=== PATIENT | female | born 1990 | race Caucasian/White ===

== ENCOUNTER 2017-10-05 15:29 | Observation (INO) ==
[2017-10-05] MEDS ORDERED: *HR* FentaNYL (PF) 100 MCG/2 ML VIAL IVP ONE ×3 (15:49→17:27)
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
[2017-10-05] MEDS ORDERED: *HR* OxyCODONE/APAP 5/325 TABLET PO ONE (17:27)
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
[2017-10-05] MEDS ORDERED: *HR* HYDROmorphone 2 MG TABLET PO ONE (18:03)
--- NOTE | 2017-10-05 19:04 | Anesthesia Evaluation PreOp ---
Date of Encounter: 10/05/17 Time of Encounter: 19:02 - Past History Planned Operation: IM Nailing Left Tibia Cardiac History: Denies any Significant Hx Pulmonary History: Smoker CANDY FEEDER History: Denies Any Significant HX (depression) Other Medical History: Other Anesthesia History: No Prior Anesthetic Complications, Past Anesthesia Test: Negative Alcohol Use: occasionally Drug use: none Medications and Allergies Norgestimate-Ethinyl Estradiol [Sprintec 28 Day Tablet] 1 each PO QAM 10/05/17 [ History] Sertraline [Zoloft] 100 mg PO QAM 10/05/17 [History] 3 Allergy/AdvReac Type Severity Reaction Status Date / Time No Known Allergies Allergy Verified 10/05/17 15:41 - Meds/Allergy Pre-op Review Medications Reviewed: Yes Allergies Reviewed: Yes Beta Blockers on Current Med List: No Anesthesia Results - Labs Laboratory Tests 10/05/17 18:41 Serum , Qual Negative Anesthesia Exam Vital Signs/O2 Sat, Most Current Temp Pulse Resp BP Pulse Ox 98.7 F 108 16 134/86 99 10/05/17 15:33 10/05/17 18:13 10/05/17 18:13 10/05/17 18:13 10/05/17 18:13 Height: 5'3''/1.6 m Weight: 150 lbs/68 kg NPO (# of Hours): 7 Pain Scale: 6 (LLE) Pain Scale Used: Numeric (1 - 10) - HEENT Pupil (Motor): EOMI Mallampati: II Teeth: Normal Oral Opening: Greater than 3 - CANDY FEEDER LOC: Oriented CANDY FEEDER Motor: Normal RUE, Normal LUE, Normal RLE, Normal LLE, Normal Face CANDY FEEDER Sensory: Normal: RUE, LUE, RLE, Face, Deficit: LLE (left foot numbness) - Cardiac Rhythm: Regular Murmur: None - Pulmonary Breath Sounds: bilateral Clear Respiratory Effort: Symmetrical Anesthesia Assess/Plan ASA Score: 2 Modified [place] Scale for Level of Consciousness: Cooperative, oriented, and tranquil Anesthetic Plan: General Monitoring Plan: Standard Monitors Recovery Plan: PACU
[2017-10-05] MEDS ORDERED: *HR* OxyCODONE Immed Rel 5 MG TABLET PO PRN (19:56)
[2017-10-05] MEDS ORDERED: Naloxone 0.4 MG/ML INJ IVP PRN (19:56)
[2017-10-05] MEDS ORDERED: *HR* HYDROcodone/Acet 5/325 mg TABLET PO PRN (19:56)
[2017-10-05] MEDS ORDERED: Acetaminophen 325 MG TABLET PO PRN (19:56)
[2017-10-05] MEDS: Ringers Solution, Lactated 1,000 ML IVC SCH ×2 (20:00→23:00)
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
[2017-10-05] MEDS ORDERED: *HR* Propofol 200 MG/20 ML VIAL IVP ONE (20:29)
[2017-10-05] MEDS ORDERED: *HR* Midazolam HCl 2 MG/2 ML VIAL ONE (20:29)
[2017-10-05] MEDS ORDERED: *HR* FentaNYL (PF) 100 MCG/2 ML VIAL ONE ×2 (20:29→22:21)
[2017-10-05] MEDS ORDERED: Lidocaine -MPF 4% 5 ML AMPUL ONE (20:30)
[2017-10-05] MEDS ORDERED: *HR* Succinylcholine 200 MG/10 ML VIAL IVP ONE (20:30)
[2017-10-05] MEDS ORDERED: Lidocaine -MPF 2% 2 ML VIAL ONE (20:30)
[2017-10-05] MEDS ORDERED: *HR* Rocuronium Bromide 50 MG/5 ML VIAL ONE (20:30)
[2017-10-05] MEDS ORDERED: Ondansetron 4 MG/2 ML VIAL IVP ONE (20:45)
[2017-10-05] MEDS ORDERED: Acetaminophen IV 1,000 MG/100 ML INFUS..BTL ONE (20:47)
[2017-10-05] MEDS ORDERED: Ondansetron 4 MG/2 ML VIAL ONE (21:26)
[2017-10-05] MEDS ORDERED: Dexamethasone 4 MG/ML VIAL ONE (21:26)
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
[2017-10-05] MEDS: *HR* FentaNYL (PF) 100 MCG/2 ML VIAL IVP PRN (23:44)
[2017-10-06] MEDS: *HR* FentaNYL (PF) 100 MCG/2 ML VIAL IVP PRN
[2017-10-06] MEDS: *HR* OxyCODONE Immed Rel 5 MG TABLET PO PRN ×2 (00:05→00:19)
--- NOTE | 2017-10-06 00:16 | Anesthesia Evaluation Post Op ---
Date of Encounter: 10/06/17 Time of Encounter: 00:15 - Vital Signs Vital Signs: Vital Signs/O2 Sat, Most Current Temp Pulse Resp BP Pulse Ox 98.9 F 112 16 113/78 95 10/06/17 00:01 10/06/17 00:01 10/06/17 00:01 10/06/17 00:01 10/06/17 00:01 - Lungs Lungs: Clear Ascult./Percussion - Airway Airway: Non-obstructed - Cardiovascular Regular Rate - Mental Status Mental Status: Alert & Oriented, Answers Appropriately - Pain Pain Scale: 5 Pain Scale used: Numeric (1 - 10) - Nausea Vomiting Nausea Vomiting: Not Present - Hydration Hydration: Ice chips, Has not voided - Discharge PostOp Status: Transfer Patient to floor
[2017-10-06] MEDS ORDERED: *HR* HYDROmorphone (PF) 1 MG/ML SYRINGE IVP PRN (00:28)
[2017-10-06] MEDS ORDERED: CeFAZolin Pre 2,000 MG/100 ML 2,000 MG/100 ML BAG IVPB SCH (00:46)
[2017-10-06] MEDS ORDERED: Ringers Solution, Lactated 1,000 ML IVC SCH (00:46)
[2017-10-06] MEDS ORDERED: *HR* OxyCODONE Immed Rel 5 MG TABLET PO PRN (00:46)
[2017-10-06] MEDS ORDERED: Acetaminophen 325 MG TABLET PO PRN (00:46)
[2017-10-06] MEDS ORDERED: Naloxone 0.4 MG/ML INJ IVP PRN ×2 (00:46)
[2017-10-06] MEDS: CeFAZolin Pre 2,000 MG/100 ML 2,000 MG/100 ML BAG IVPB SCH ×2 (04:35→10:57)
[2017-10-06 05:20] LABS: Hematocrit 33.2 % (35.3-44.9); Hemoglobin 10.8 g/dL (11.5-15.4)
[2017-10-06 05:39] LABS: BUN/Creatinine Ratio 22 (6-26); Blood Urea Nitrogen 14 mg/dL (6-20); Calcium 8.5 mg/dL (8.6-10.3); Carbon Dioxide 23 mEq/L (23-29); Chloride 108 mEq/L (98-107); Glucose 144 mg/dL (70-105); Osmolality,Calculated 287 (280-300); Potassium 4.3 mEq/L (3.5-5.1); Sodium 137 mEq/L (136-145); eGFR For African Americans > 60 (> 60); eGFR For Non-African Americans > 60 (> 60)
--- NOTE | 2017-10-06 08:12 | Orthopedics Progress Note ---
Date of Encounter: 10/06/17 Time of Encounter: 08:09 - Assessment and Plan (1) Displaced comminuted fracture of shaft of tibia Current Visit: Yes Status: Acute Qualifiers: Encounter type: initial encounter Fracture type: closed Laterality: left Qualified Code(s): S82.252A - Displaced comminuted fracture of shaft of left tibia, initial encounter for closed fracture Subjective Interval history: S: Resting comfortably in bed Pain in the left leg very well-controlled Did not need any dilated last night O: Afebrile on the vital signs are stable Short-leg splint to the left lower extremity intact She can grossly flex and extend the toes and they are all sensate and well- perfused Postoperative x-rays show good position of the nail A: Post left hip nailing P: Nonweightbearing to left lower extremity Elevation to the left lower extremity Lovenox for DVT prophylaxis 2 doses of Ancef Cardenas out Therapy today Home today if pain controlled, no nausea, and ambulating well with crutches. Objective Vital signs: Vital Signs Temp Pulse Resp BP Pulse Ox 10/06/17 06:37 98.5 F 84 18 99/63 96 10/06/17 03:30 98.2 F 68 16 105/76 96 10/06/17 02:50 98.1 F 68 16 95/78 96 10/06/17 01:46 98.1 F 79 16 98/72 96 10/06/17 01:20 97.6 F 79 16 105/82 96 10/06/17 00:50 98.1 F 93 16 101/62 97 10/06/17 00:21 98 18 109/73 96 10/06/17 00:11 100 18 113/72 94 10/06/17 00:01 98.9 F 112 16 113/78 95 10/05/17 23:51 108 16 118/71 95 10/05/17 23:41 116 18 117/69 94 10/05/17 23:31 99.1 F 107 16 108/60 97 10/05/17 19:07 99.2 F 108 14 112/74 98 10/05/17 18:13 108 16 134/86 99 Intake and Output 10/05/17 10/06/17 10/06/17 23:59 07:59 15:59 Intake Total 1000 / 1000 Output Total 100 / 100 1300 / 1300 Balance 900 / 900 -1300 / -1300 Intake: IV Fluids 1000 / 1000 Lactated Ringers 1,000 ML @ 100 1000 / 1000 mls/hr IVC .Q10H LINA Rx#: [id number] Output: Estimated Blood Loss 100 / 100 Urine Amount (Catheter) 550 / 550 Catheter 750 / 750 - Labs CBC & BMP: 10/06/17 04:44 10/06/17 04:44 Labs: Abnormal lab results Hgb 10.8 g/dL (11.5-15.4) L 10/06/17 04:44 Hct 33.2 % (35.3-44.9) L 10/06/17 04:44 Chloride 108 mEq/L (98-107) H 10/06/17 04:44 Glucose 144 mg/dL (70-105) H 10/06/17 04:44 Calcium 8.5 mg/dL (8.6-10.3) L 10/06/17 04:44 Consult Discharge Plan - Plan Referrals: NONE,PCP [Primary Care Provider] -
[2017-10-06] MEDS ORDERED: *HR* Enoxaparin 30 MG/0.3 ML SYRINGE SQ SCH ×2 (08:15→18:00)
--- NOTE | 2017-10-06 14:39 | Discharge Summary ---
Orders not resulted at time of discharge: Pending orders 10/05/17 XR tibia fibula LT [XR] Routine Date of Encounter: 10/06/17 Time of Encounter: 14:34 - Discharge Diagnosis (1) Displaced comminuted fracture of shaft of tibia Priority: Primary Status: Acute Qualifiers: Encounter type: initial encounter Fracture type: closed Laterality: left Qualified Code(s): S82.252A - Displaced comminuted fracture of shaft of left tibia, initial encounter for closed fracture - Hospital Course Hospital course: Ms. Hernandez is a 27 year old female - Time Spent with Patient Total time spent providing and/or coordinating discharge services: - Discharge Medications Prescriptions: Aspirin Enteric Coated [Aspirin EC] 325 mg PO BID #56 tablet. OxyCODONE/APAP 5/325 [Percocet 5/325 MG] 1 each PO Q6HR PRN 7 Days #28 tablet PRN Reason: Pain Home Medications: Norgestimate-Ethinyl Estradiol [Sprintec 28 Day Tablet] 1 each PO QAM 10/05/17 [ History] Sertraline [Zoloft] 100 mg PO QAM 10/05/17 [History] Aspirin Enteric Coated [Aspirin EC] 325 mg PO BID #56 tablet. 10/06/17 [Rx] OxyCODONE/APAP 5/325 [Percocet 5/325 MG] 1 each PO Q6HR PRN 7 Days #28 tablet [Rx] Allergies/Adverse Reactions: 3 Allergy/AdvReac Type Severity Reaction Status Date / Time No Known Allergies Allergy Verified 10/05/17 15:41 Date of admission: 10/05/17 17:53 Primary care physician: PCP NONE Consults: 10/06/17 00:46 Consult to Occupational Therapy [CONS] Routine Comment: Evaluate, develop and implement POC Reason for Consult: Left tibial nail Does patient have active BEDREST order?: No Is patient medically & hemodynamically stable?: Yes Consult to Orthopedic Navigator [CONS] [CONS] Routine Consult to Physical Therapy [CONS] Routine Comment: Evaluate, develop and implement POC Reason for Consult: Left tibial nail Does patient have active BEDREST order?: No Is patient medically & hemodynamically stable?: Yes Consult to Soils Analyst [CONS] Routine Reason for SW Consult: post -op hip fracture RT Post Op Consult [CONS] Routine - VTE Documentation of Mechanical Device: Intermittent pneumatic compression device Labs on day of discharge: Labs from last 24 hours 10/06/17 10/06/17 10/05/17 04:44 04:44 18:41 Hgb 10.8 L Hct 33.2 L Sodium 137 Potassium 4.3 Chloride 108 H Carbon Dioxide 23 BUN 14 Creatinine 0.64 Est GFR ( Amer) > 60 Est GFR (Non-Af Amer) > 60 BUN/Creatinine Ratio 22 Glucose 144 H Calculated Osmolality 287 Calcium 8.5 L Serum , Qual Negative - Impressions ITS Impressions Ankle CT 10/05/17 18:10 IMPRESSION: 1. Acute comminuted mildly displaced fracture of the distal tibial metadiaphysis. No involvement of the tibial plafond. 2. Partially visualized acute fracture of the proximal fibular diaphysis. D/ / August Miranda MD / August Miranda MD Interpreting Provider: August Miranda MD Tibia/Fibula X-Ray 10/05/17 23:36 IMPRESSION: Improved alignment of tibial fracture status post ORIF. No evidence of hardware complication. Improved alignment of fibular fracture as well. D/ / Jeffery Echeverria / Jeffery Echeverria Interpreting Provider: Jeffery Echeverria - Patient Status Disposition: Home, Self-Care Condition: Fair - Discharge Instructions Follow Up With: NONE,PCP [Primary Care Provider] - Additional Instructions: DISCHARGE INSTRUCTIONS Dr. Aquino DISCHARGE DIAGNOSIS/PROCEDURE Fixation of left tibia PAIN AND SWELLING: Elevate the left lower extremity above the level of the heart ACTIVITY: Do not put any weight down on the left lower extremity. Usual walker as instructed WOUND CARE: Keep the dressing and splint clean, dry, and intact. DRIVING: No driving at least until your first follow-up DIET: Begin with clear liquids, and then increase your diet as you feel comfortable. MEDICATIONS: Pain: Percocet Other: Take enteric-coated aspirin 325 mg by mouth twice a day to reduce the risk of blood clots FOLLOW-UP Follow-up with Dr. Aquino at the office 1 week from the surgery date for a post operative evaluation. Call the office at [phone] to schedule or confirm your appointment. WHEN TO CALL THE DOCTOR OR WHEN TO SEEK CARE BEFORE YOUR APPOINTMENT 1. Excess swelling or increased numbness not made better by elevating the hand and moving the fingers. 2. Uncontrolled pain. 3. A color change in your hand or fingers. 4. Worsening redness or drainage. 5. Fevers over 100.5 degrees F or 38.1 degrees C. 6. Any symptoms that bring concern to you. Follow-up appointments: If there is not an appointment listed below, please call your physician and schedule a follow-up appointment. If you have congestive heart failure and your symptoms return, make an appointment with your physician. Medication List: Carry an up to date list of medications you are taking at all time. We have given you an updated medication list including any new medications that you have been prescribed. Please provide that list to your primary provider Symptoms: If your condition changes or you experience any of the following symptoms, notify your physician immediately: Unusual or worsening pain, fever, persistent nausea and vomiting, bleeding, increase in swelling (especially in your legs), sudden weight gain, extreme dizziness, chest pain, increased drainage or redness from a wound or incision. Go to the emergency department if you experience a problem with breathing. Weights: If you have a history of swelling or shortness of breath, weigh yourself daily and notify your physician if you have a weight gain of two or more pounds in one day or 5 or more pounds in a week. If you experience any of the warning signs for stroke: Sudden numbness or weakness of the face, arm or leg; especially on one side of the body, sudden confusion, trouble speaking or understanding, sudden trouble seeing in one or both eyes, sudden trouble walking, dizziness, loss of balance or coordination, sudden sever headache with no cause; Call 911 or go to the emergency room. Stroke is a medical emergency. Some risk factors for stroke: Age, cigarette smoking, diabetes, excessive alcohol consumption, family history , high blood pressure, overweight, physical inactivity, prior stroke, heart attack, diagnosis of carotid artery stenosis or other artery disease. If you smoke, STOP: Smoking or tobacco use significantly increases your risk of heart and lung disease. Your chance of disease greatly increases if you continue to smoke. For more information, call the [place] tobacco quit line for smoking cessation 6- QUIT-NOW ( )
[2017-10-06 14:58] VITALS: BP 99/63
== END 2017-10-06 15:55 | disposition home or self-care (01) ==
LOC: 3NENU 15:29 → EMEROO 15:29 → 3NENU 18:58
PROVIDERS: ADMIT Orthopaedic Surgery Hand Surgery; ATTEND Orthopaedic Surgery Hand Surgery